=== PATIENT | female | born 1975 | race Caucasian/White ===

== ENCOUNTER 2024-01-09 21:29 | Emergency (ER) | payer BC, OTHER ==
[2024-01-09 21:43] VITALS: BP 170/90; PULSE 74; RESP 18; TEMP 98.2; BMI 28.3
[2024-01-09] MEDS ORDERED: LIDOCAINE 5% TOPICAL PATCH ONE (21:52)
[2024-01-09] MEDS ORDERED: METHOCARBAMOL 500 MG TABLET ONE (21:52)
[2024-01-09] MEDS: LIDOCAINE 5% TOPICAL PATCH TP ONE (21:55)
[2024-01-09] MEDS: METHOCARBAMOL 500 MG TABLET PO ONE (21:55)
[2024-01-09] MEDS ORDERED: LIDOCAINE PATCH REMOVAL MC SCH (22:00)
== END 2024-01-09 21:58 | disposition home or self-care (01) ==
LOC: FER 21:29
DX: M62.838 Other muscle spasm (principal)
CPT/HCPCS: 99283-25